=== PATIENT | female | born 1975 | race Caucasian/White ===

== ENCOUNTER 2016-02-21 21:14 | Emergency (ER) | payer BC ==
--- NOTE | 2016-02-22 01:21 | DIAGNOSTIC IMAGING REPORT ---
PROCEDURE: CT ABD/PELVIS WITH CONTRAST INDICATION: GI bleed. Nausea. Elevated white blood count (12,000). TECHNIQUE: 135 ml of Isovue 300 were injected intravenously and axial images were obtained of the entire abdomen and pelvis with sagittal and coronal reformations. COMPARISON: None. FINDINGS: ABDOMEN: There is moderate to marked mucosal thickening of the distal transverse colon, descending colon and proximal sigmoid colon. Bowel pattern is otherwise normal, including appendix. Gallbladder, liver, spleen, pancreas, kidneys, and aorta are normal. PELVIS: Status post hysterectomy. Adnexal structures are normal. No evidence of free fluid. IMPRESSION: 1. Moderate to marked mucosal thickening of the left colon. While infectious processes are most likely (e.g., Salmonella, Shigella, pseudomembranous), idiopathic causes (e.g., Crohn disease) should also be considered. Small vessel ischemic colitis could also have this distribution (e.g., vasculitis), as there is nothing to suggest large vessel disease (atherosclerosis, embolic). 2. Status post hysterectomy. 3. Findings discussed with Dr. Leon. All CT scans at this facility use dose modulation, iterative reconstruction, and/or weight-based dosing when appropriate to reduce radiation dose to as low as reasonably achievable.
--- NOTE | 2016-02-22 01:29 | ED NURSING NOTES ---
Clinical Report - Nurses [facility] [address] [place] [address] 02/21/2016 21:15 [id number] Triage time 22:05 Feb 21 2016. Acuity: LEVEL 3. Chief Complaint: (Bloody stool). SEPSIS SCREEN: Sepsis Screen: negative. Negative (no infection suspected/documented). CHINO COMA SCORE: [place] Coma Scale: 15- eyes open spontaneously (4); best verbal response- oriented x 4 (5); best motor response- obeys commands (6). --22:10 Kelli Ordoñez 22:05 02/21/16. BP: 145/99. HR: 99. RR: 20. O2 saturation: 97%. Temp: 98.2 F (oral). Pain level now: 08/28. --22:10 Kelli Ordoñez. Weight: 117.9 kg stated. Height/Length: 67 inches Per Patient. BMI: 40.7. --22:09 Kelli Ordoñez. Medications Gabapentin Oral 300 mg. Glimepiride Oral (Tablet 2 mg). Hydrocodone-Acetaminophen Oral. Ibuprofen Oral 800 mg. Lisinopril Oral 5 mg, daily. Metformin HCl Oral 850 mg, 2x a day. --22:08 Kelli Ordoñez Niacin ER Oral (Tablet Extended Release 500 mg). Simvastatin Oral 20 mg, daily. --22:08 Kelli Ordoñez. Medication/allergy information source: the patient. --22:10 Kelli Ordoñez. Allergies Morphine and Related. --22:09 Kelli Ordoñez. History Arrived by private vehicle. Historian: patient. Accompanied by family. Primary physician (belinda). This started yesterday. ( Patient states that she began having abdominal cramping and nausea yesterday. She states she then had diarrhea that then began to turn bloody. She states she has no pressure or pain in her rectum and does not believe it to be hemorrhoids. She feels lightheaded.). No fever. Treatment EXPERIMENTAL DISPLAY BUILDER: None. PAST MEDICAL HX: Immunizations: up-to-date. The patient has had a hysterectomy. SOCIAL HX: Never smoker. Occasional alcohol use. No drug use. No infectious disease exposure. ABUSE ASSESSMENT: No report of abuse. FALL RISK ASSESSMENT: Fall risk assessment completed. No fall risk identified. NUTRITIONAL RISK ASSESSMENT: The nutritional risk assessment revealed no deficiencies. FUNCTIONAL ASSESSMENT: Functional assessment: no impairments noted. LEARNING NEEDS ASSESSMENT: The learning needs assessment revealed no barriers. SKIN INTEGRITY ASSESSMENT: Skin integrity risk assessment completed. No skin integrity risk identified. --22:10 Kelli Ordoñez. PROBLEMS: UTI - Urinary Tract Infection. Ovarian Cyst. Endometriosis. Vaginal Bleeding. Hypertension. Diabetes Mellitus. --22: Kelli Ordoñez. ADDITIONAL SURGERIES: Carpal Tunnel Surgery. Foot surgery. Knee Surgery. --22: Kelli Ordoñez. Interventions ID band on patient. To treatment room. --22:10 Kelli Ordoñez. PHYSICAL ASSESSMENT Ambulatory to room. Patient gowned. GENERAL / NEURO / PSYCH: Alert. Oriented X 4. Appears in pain. HEENT: Mucous membranes are pink. RESPIRATORY: Respirations not labored. CVS: Cardiac rhythm: sinus tachycardia. GI / : Abdomen soft. Abdominal tenderness in the periumbilical area. SKIN: Skin is warm and dry. --22:11 Kelli Ordoñez. NURSING PROGRESS NOTES 22:02/21/16. Pulse oximeter and NIBP monitor placed on patient; monitor alarms on. Patient gowned. Head of bed elevated. Reassurance given to the patient. Two patient identifiers checked. Call light placed in reach. Side rails up x 1. Bed placed in lowest position. Brakes of bed on. Patient ready for evaluation- chart flagged. --22:11 Kelli Ordoñez Patient ready for evaluation- chart flagged and ED physician notified. --22:12 Kelli Ordoñez 22:39 02/21/2016 Site #1 started via IV in the right antecubital space with an 20g angiocath, with aseptic technique and good blood return; one attempt. Blood drawn: rainbow set. Labeled in the presence of the patient and sent to the lab. Saline lock flushed with 10 mL saline. --22:39 Kelli Ordoñez 22:40 02/21/2016 Started bag #1 1000 mL IV Fluids IV NS (Saline); at 1000 mL/hr over 30 minute(s) via site #1. Allergies verified and confirmed 5 rights. IV patency established. IV site checked: no pain, redness, or swelling. IV flushed thoroughly pre- and post-medication administration. --22:40 Kelli Ordoñez 22:40 02/21/2016 Zofran (Ondansetron HCl) IVP 4 mg given over 1 minute(s) via site #1. Allergies verified and confirmed 5 rights. IV patency established. IV site checked: no pain, redness, or swelling. IV flushed thoroughly pre- and post-medication administration. IVP given by RN. --22:40 Kelli Ordoñez 22:41 02/21/16. BP: 130/103. HR: 96. RR: 20. O2 saturation: 99% on room air. --22:42 Kelli Ordoñez Patient ID band checked for patient name and birthdate: patient confirmed. Blood samples drawn from the right antecubital space peripheral IV site by nurse ; labeled in presence of the patient and sent to lab: rainbow set. Additional blood sent to lab. Line flushed with 10 mL normal saline post blood draw. --22:42 Kelli Ordoñez 22:42 02/21/16. BP: 141/89. --22:42 Kelli Ordoñez 23:31 02/21/16. BP: 123/87. --23:32 Leela Ochoa R.N. 23:32 02/21/2016 IV Fluids IV NS Discontinued: bag #1 infused. Total amount infused: 1000 mL. --23:33 Leela Ochoa R.N. Patient transported to [place] by stretcher with tech. (23:45 Feb 21 2016). --23:45 Kelli Ordoñez 23:56 02/21/2016 Fentanyl IVP 100 mcg given over 2 minute(s) via site #1. Allergies verified, confirmed 5 rights and sedative warning given to the patient. IV patency established. IV site checked: no pain, redness, or swelling. IV flushed thoroughly pre- and post-medication administration. IVP given by RN. --23:56 Kelli Ordoñez 23:56 02/21/16. BP: 135/95. HR: 94. RR: 20. O2 saturation: 100% on room air. Pain level now: 0/10. --23:57 Kelli Ordoñez Reassessment after medication administered. Overall patient status- she states feels better. ( Patient states she felt immediately better after receiving pain medication). --23:57 Kelli Ordoñez 00:15 02/22/2016 Bactrim DS (Sulfamethoxazole-TMP DS) PO Tablets 1 tab given. Allergies verified and confirmed 5 rights. --00:15 Kelli Ordoñez 00:31 02/22/2016 Zofran (Ondansetron HCl) IVP 4 mg given over 2 minute(s) via site #1. Allergies verified and confirmed 5 rights. IV patency established. IV site checked: no pain, redness, or swelling. IV flushed thoroughly pre- and post-medication administration. IVP given by RN. --00:31 eKlli Ordoñez 01:18 02/22/16. BP: 100/74. HR: 90. O2 saturation: 97% on room air. --01:18 Kelli Ordoñez EKG time: (0125). EKG was performed by a tech and shown to the ED physician. --01:26 Rosanna Macario 01:02/22/2016 Site #1 removed upon discharge. Catheter intact. Bandaid applied. --01: Kelli Ordoñez. DISPOSITION / DISCHARGE ( 01:18 02/22/16. BP: 100/74. HR: 90. O2 saturation: 97% on room air. 1:18 Kelli Ordoñez). --01:31 Kelli Ordoñez 01:31 02/22/16. Temp: 98.9 F. Pain level now 0/10. --01:31 Kelli Ordoñez 01:32 02/22/16. Condition at departure: stable. No learning barriers present. Discharge instructions provided and reviewed with the patient and spouse. Reviewed medication(s) side effects, precautions, dosing and course information. Prescription(s) given to the patient. Reviewed need for increased fluid intake. Work note given (No work for three days). Patient verbalized understanding. Written instructions provided in Serbian. ( Follow up with PCP in 24 hours.). The patient was discharged by the physician. She was discharged home and accompanied by spouse. She left the Emergency Department ambulatory and via private vehicle. Spouse driving. --01:33 Kelli Ordoñez. Locked/Released at 02/22/2016 1:43 by Kelli Ordoñez,
--- NOTE | 2016-02-22 01:29 | ED ORDER SUMMARY ---
..... Patient: KENNEDY GILLETTE OrderSheet [facility] VisitID: [id number] [place] [address] 40y, F Registration Date/Time: 02/21/2016 ORDER SHEET Weight: 117.9 kg (stated) Allergies: Morphine and Related GENERAL ORDERS: UA-Culture if indicated Urgent (22:02/21/2016 PHutchinson DO) (Ack 22:28 LMuller) (23:39 CHategekimana) Amylase Urgent (:02/21/2016 PHutchinson DO) (Ack 22:28 LMuller) (23:28 SBalde R.N.) Lipase Urgent (:02/21/2016 PHutchinson DO) (Ack 22:28 LMuller) (23:28 SBalde R.N.) PT with INR Urgent (22:02/21/2016 PHutchinson DO) (Ack 22:28 LMuller) (23:28 SBalde R.N.) Cardiac Panel Stat (22:02/21/2016 PHutchinson DO) (Ack 22:28 LMuller) (23:28 SBalde R.N.) Culture, Stool Urgent (22:02/21/2016 PHutchinson DO) (Ack 22:28 LMuller) NPO (22:02/21/2016 PHutchinson DO) (22:43 HSoule) CT Abd/Pel w Cont (Yes) (N/A) Urgent (22:30 02/21/2016 PHutchinson DO) (Ack 22:30 LMuller) (23:54 MCampbell) EKG - ER Stat (01:10 02/22/2016 PHutchinson DO) (Ack 1:14 Jensegekimana) (1:26 LMuller) MEDICATION ORDERS: Bactrim DS PO (Tablet 800-160 mg) 1 tab (NOW) (00:06 02/22/2016 PHutchinson DO) (Ack 0:10 HSoule) (0:15 HSoule) IV FLUIDS: IV NS : initial bolus 500 mL (1000 mL/hr), then 250 mL/hr for X2 (NOW) (22:25 02/21/2016 [facility]) (Ack 22:27 HSoule) (22:40 HSoule) Zofran IV 4 mg (NOW) (22:26 02/21/2016 [facility]) (Ack 22:27 HSoule) (22:40 HSoule) Fentanyl IV 100 mcg (HIGH ALERT MEDICATION, NOW) (23:49 02/21/2016 [facility]) (Ack 23:49 HSoule) (23:56 HSoule) Zofran IV 4 mg (NOW) (00:27 02/22/2016 [facility]) (Ack 0:28 HSoule) (0:31 HSoule) ORDER SHEET NOTES: [Electronically signed by Kelli Ordoñez (01:43 02/22/2016)] [Electronically signed by Arnie Leon DO (07:18 02/22/2016)] [Electronically locked/signed by Kelli Ordoñez (:43 02/22/2016)]
--- NOTE | 2016-02-22 01:29 | ED ORDER SUMMARY ---
..... Patient: KENNEDY GILLETTE OrderSheet [facility] VisitID: [id number] [place] [address] 40y, F Registration Date/Time: 02/21/2016 ORDER SHEET Weight: 117.9 kg (stated) Allergies: Morphine and Related GENERAL ORDERS: UA-Culture if indicated Urgent (22:02/21/2016 PHutchinson DO) (Ack 22:28 LMuller) (23:39 CHategekimana) Amylase Urgent (:02/21/2016 PHutchinson DO) (Ack 22:28 LMuller) (23:28 SBalde R.N.) Lipase Urgent (:02/21/2016 PHutchinson DO) (Ack 22:28 LMuller) (23:28 SBalde R.N.) PT with INR Urgent (22:02/21/2016 PHutchinson DO) (Ack 22:28 LMuller) (23:28 SBalde R.N.) Cardiac Panel Stat (22:02/21/2016 PHutchinson DO) (Ack 22:28 LMuller) (23:28 SBalde R.N.) Culture, Stool Urgent (22:02/21/2016 PHutchinson DO) (Ack 22:28 LMuller) NPO (22:02/21/2016 PHutchinson DO) (22:43 HSoule) CT Abd/Pel w Cont (Yes) (N/A) Urgent (22:30 02/21/2016 PHutchinson DO) (Ack 22:30 LMuller) (23:54 MCampbell) EKG - ER Stat (01:10 02/22/2016 PHutchinson DO) (Ack 1:14 Jensegekimana) (1:26 LMuller) MEDICATION ORDERS: Bactrim DS PO (Tablet 800-160 mg) 1 tab (NOW) (00:06 02/22/2016 PHutchinson DO) (Ack 0:10 HSoule) (0:15 HSoule) IV FLUIDS: IV NS : initial bolus 500 mL (1000 mL/hr), then 250 mL/hr for X2 (NOW) (22:25 02/21/2016 [facility]) (Ack 22:27 HSoule) (22:40 HSoule) Zofran IV 4 mg (NOW) (22:26 02/21/2016 [facility]) (Ack 22:27 HSoule) (22:40 HSoule) Fentanyl IV 100 mcg (HIGH ALERT MEDICATION, NOW) (23:49 02/21/2016 [facility]) (Ack 23:49 HSoule) (23:56 HSoule) Zofran IV 4 mg (NOW) (00:27 02/22/2016 [facility]) (Ack 0:28 HSoule) (0:31 HSoule) ORDER SHEET NOTES: [Electronically signed by Kelli Ordoñez (01:43 02/22/2016)] [Electronically signed by Arnie Leon DO (07:18 02/22/2016)] [Electronically locked/signed by Kelli Ordoñez (:43 02/22/2016)]
--- NOTE | 2016-02-22 01:29 | ED CLINICAL REPORT ---
Clinical Report - Physicians/Mid Levels [facility] [address] [place] [address] 02/21/2016 21:15 Patient: KENNEDY GILLETTE Time Seen: 22:22. Arrived- By private vehicle. Historian- patient. HISTORY OF PRESENT ILLNESS Chief Complaint: RECTAL BLEEDING. This started last night about 22 hours ago, has been moderate and is still present. It was gradual in onset and has been waxing/waning. The patient has had rectal bleeding, nausea and moderate, crampy, intermittent abdominal pain. The pain is described as generalized. but not had rectal pain. No constipation or vomiting. The patient has had moderate diarrhea. This has occurred several times. It has been bloody and watery and has been associated with cramps. (Patient states that she began having abdominal cramping and nausea yesterday. She states she then had diarrhea that then began to turn bloody. She states she has no pressure or pain in her rectum and does not believe it to be hemorrhoids. She feels lightheaded. No fever.). She has had contact with a sick spouse. (with viral sounding URI symptoms). Similar symptoms previously: Recent medical care: Not recently seen/assessed. REVIEW OF SYSTEMS The patient has had generalized weakness. The patient has had a hysterectomy. She has had dizziness. No fainting episodes, fever, sore throat, epistaxis or cough. No difficulty breathing, chest pain, hematuria or skin rash. Denies current . She has had mild nasal congestion and a mild cough. All systems otherwise negative, except as recorded above. PAST HISTORY See nurses notes. PCP: Dr Mccormick. Hypertension. Type II diabetes mellitus treated with oral med. Hyperlipidemia. Endometriosis. Ovarian cyst. Urinary tract infection. Chronic back pain. Surgeries: Carpal tunnel surgery. Colonoscopy. Had hysterectomy. Knee surgery. Medications: Niacin ER Oral (Tablet Extended Release 500 mg). Simvastatin Oral 20 mg, daily. Gabapentin Oral 300 mg. Glimepiride Oral (Tablet 2 mg). Hydrocodone-Acetaminophen Oral. Ibuprofen Oral 800 mg. Lisinopril Oral 5 mg, daily. Metformin HCl Oral 850 mg, 2x a day. Allergies: Morphine and Related. SOCIAL HISTORY Never smoker. Occasional alcohol use. FAMILY HISTORY Son diagnosed with Crohn's disease about 2 years ago. ADDITIONAL NOTES The nursing notes have been reviewed. PHYSICAL EXAM Vital Signs: 02/21/2016 22:05 BP: 145/99. HR: 99. RR: 20. O2 saturation: 97%. Temp: 98.2 F. Pain level now: 7/10. Appearance: Alert. Oriented X3. No acute distress. Eyes: Pupils equal, round and reactive to light. Eyes normal inspection. No pale conjunctivae or scleral icterus. ENT: Pharynx normal. No pharyngeal erythema or tonsillar exudate. The mucous membranes are not dry. Neck: Normal inspection. Neck supple. CVS: Normal heart rate and rhythm. Heart sounds normal. Pulses normal. Respiratory: No respiratory distress. Breath sounds normal. Abdomen: Soft. Mild tenderness in the lower abdomen. No mass. No rebound tenderness or guarding. Back: Normal inspection. Skin: Skin warm and dry. Normal skin color. No rash. Normal skin turgor. Extremities: Extremities exhibit normal ROM. No lower extremity edema. No calf tenderness. Neuro: Oriented X 3. No motor deficit. LABS, X-RAYS, AND EKG EKG: EKG time: (01:25). Normal sinus rhythm. Rate: 90. Normal P waves. Normal SO. Normal QRS complex. Normal axis. Normal ST and T waves. The study has been interpreted contemporaneously by me. The EKG appears to be a good tracing. Abdominal CT: Normal aorta. Normal liver, spleen and pancreas. Uterus abnormal. Adnexa normal. Appendix normal. No free fluid. IMPRESSION: 1. Moderate to marked mucosal thickening of the left colon. While infectious processes are most likely (e.g., Salmonella, Shigella, pseudomembranous), idiopathic causes (e.g., Crohn disease) should also be considered. Small vessel ischemic colitis could also have this distribution (e.g., vasculitis), as there is nothing to suggest large vessel disease (atherosclerosis, embolic). 2. Status post hysterectomy. Study type: abdomen and pelvis. Abdominal CT performed with IV contrast. The study was independently viewed by me, interpreted by the radiologist and discussed with the radiologist. Laboratory Tests: UA-Culture if indicated: (SHREYAS: 02/21/2016 23:35) ( MsgRcvd 02/21/2016 23:56) Final results Test Result Flag Units (Reference) URINE COLOR YELLOW URINE APPEARANCE SLIGHTLY HAZY URINE GLUCOSE NEGATIVE (NEGATIVE) URINE BILIRUBIN NEGATIVE (NEGATIVE) URINE KETONE NEGATIVE (NEGATIVE) URINE SPECIFIC GRAVITY <= 1.005 L (1.010-1.030) URINE PH 6.0 (5.0-8.0) URINE PROTEIN NEGATIVE (NEGATIVE) URINE UROBILINOGEN 0.2 EU/dL (0.2-1.0) URINE NITRITE NEGATIVE (NEGATIVE) URINE BLOOD 1+ (NEGATIVE) URINE LEUK ESTERASE POSITIVE (NEGATIVE) URINE RBC 1-3 rbc/hpf (0-1) URINE WBC 5-10 wbc/hpf (0-1) URINE EPITHELIAL CELLS 5-10 EPI/hpf (0-5) URINE BACTERIA TRACE (<1+) (NONE SEEN) URINE COMMENT CULTURE INDICATED URINE CULTURES ARE SET-UP BASED ON THE FOLLOWING CRITERIA:POSITIVE NITRITEPOSITIVE LEUKOCYTE ESTERASEGREATER THAN 10 WHITE BLOOD CELLSMODERATE (2+) OR GREATER BACTERIA CBC w Diff: (SHREYAS: 02/21/2016 23:00) ( MsgRcvd 02/21/2016 23:08) Final results Test Result Flag Units (Reference) WHITE BLOOD COUNT 12.0 H K/uL (4.5-11.5) RED BLOOD COUNT 4.48 M/uL (4.00-5.20) HEMOGLOBIN 12.4 gm/dL (12.0-16.0) HEMATOCRIT 38.6 % (36.0-46.0) MEAN CELL VOLUME 86 fL (80-100) MEAN CORPUSCULAR HGB 28 pg (26-34) MEAN CORPUSCULAR HGB CONC 32 g/dL (31-37) RED CELL DISTRIBUTION WIDTH 15.3 H % (11.6-14.8) PLATELET COUNT 350 K/uL (150-400) NEUTROPHIL % 75.2 H % (50-75) LYMPH % 17.1 L % (25-40) MONO % 6.4 % (3-14) EOSINOPHIL % 1.0 % (0-4) BASOPHIL % 0.3 % (0-2) PT with INR: (SHREYAS: 02/21/2016 23:00) ( [facility] 02/21/2016 23:15) Final results Test Result Flag Units (Reference) INR 0.9 (0.8-1.2) Low Intensity Therapy: INR 1.5-2.0 PT range 18.5-23.1Mod.Intensity Therapy: INR 2.0-3.0 PT range 23.1-31.5High Intensity Therapy: INR 2.5-3.5 PT range 27.4-35.5High Intensity Therapy 2: INR 3.0-4.0 PT range 31.5-39.3 Lipase: (SHREYAS: 02/21/2016 23:00) ( [facility] 02/21/2016 23:19) Final results Test Result Flag Units (Reference) LIPASE 114 U/L (73-393) AMYLASE 24 L U/L (25-115) CHEM 13 PANEL: (SHREYAS: 02/21/2016 23:00) ( [facility] [place] [place] 02/21/2016 23:24) Final results Test Result Flag Units (Reference) GLUCOSE 140 H mg/dL (70-110) BUN 7 mg/dL (7-18) CREATININE 0.7 mg/dL (0.6-1.3) Estimated GFR >60 mL/min Estimated GFR- >60 mL/min Note: Persistent reduction over 3 months in eGFR<60 mL/min/1.73 m2 defines CKD. Patients with eGFR values>=60 mL/min/1.73 m2 may also have CKD if evidence ofpersistent proteinuria. Additional information may be foundat www.kidney.org. SODIUM 139 mmol/L (136-145) POTASSIUM 3.5 mmol/L (3.5-5.1) CHLORIDE 103 mmol/L (98-107) CARBON DIOXIDE 26 mmol/L (21-32) CALCIUM 9.0 mg/dL (8.5-10.1) TOTAL PROTEIN 7.4 g/dL (6.4-8.2) ALBUMIN 3.5 g/dL (3.3-5.0) BILIRUBIN, TOTAL 0.4 mg/dL (0.0-1.0) ALKALINE PHOSPHATASE 83 U/L (46-116) AST (SGOT) 11 L U/L (15-37) ALT (SGPT) 28 U/L (12-78) CPK 51 U/L (24-260) MAGNESIUM 1.8 mg/dL (1.8-2.4) TROPONIN I <0.05 L ng/mL (0.00-1.5) TROPONIN REFERENCE RANGE:<0.1 NEGATIVE0.1-1.5 INDETERMINANT>1.5 POSITIVE . Microbiology: Urine culture ordered. Pulse Oximetry: 02/21/2016 22:05 O2 saturation: 97%. (FIO2 - room air). Interpretation: normal. PROGRESS AND PROCEDURES Course of Care: Normal Saline 1 liter IVPB given. Bactrim DS 1 tab PO. Zofran 4 mg + 4 mg IVP given. Fentanyl 100 mcg IVP given. 01:12 02/22/16. CT report just obtained from radiologist (Dr Shepherd). Transverse and descending colon with moderate mucosal thickening - etiology is not clear 01:20 02/22/16. Pain has resolved. Currently nontender abdominal exam. Discussed admission vs home treatment with close out pt follow up and / or return to the ED - pt has good follow up mechanisms with pcp and has had colonoscopy in the past by [facility]. I will give trial at home with immediate return for new / worse symptoms or any concerns. Patient/family counseled. Old ED records reviewed. Disposition: Discharged. Condition: stable and improved. CLINICAL IMPRESSION Acute periumbilical, right lower quadrant, suprapubic and left lower quadrant abdominal pain of undetermined cause. Acute inflammatory colitis; infectious colitis (Consider inflammatory bowel disease / Crohn's disease). No pseudomembranous colitis. Rectal bleed consisting of bright red blood. Acute urinary tract infection with cystitis. INSTRUCTIONS Do not work for three days. Drink plenty of fluids. No alcohol until released. (MANDATORY FOLLOW UP IN 12 - 24 HOURS. Immediate return for new / worse symptoms or any concerns.). Warnings: Further evaluation is necessary in order to recheck abnormal lab, obtain test results, conduct further tests and assess the possibility of serious illness (You will likely require a repeat colonoscopy). It is very important to follow up with a physician. SEDATIVE MEDICATION: You were given sedative medication during your visit. Do not drive or operate dangerous machinery. CONTROLLED SUBSTANCE WARNINGS. GENERAL WARNINGS: Return or contact your physician immediately if your condition worsens or changes unexpectedly, if not improving as expected, or if other problems arise. Prescription Medications: Zofran (orally disintegrating tablets) 4 mg: take 1-2 orally every 8 hours as needed for vomiting. Dispense ten (10). No refill. Substitution is permissible. Trimethoprim-Sulfamethoxazole DS: take 1 tablet orally every 12 hours for 7 days. Dispense fourteen (14). No refills. Percocet 5 mg/325 mg: take 1-2 tablets orally every 6 hours as needed for pain. Dispense ten (10). No refill. Substitution is permissible. Follow-up with: Dariusz Mccormick MD, [facility], , [address] [place] [address] Follow up tomorrow. Follow-up with: Nelson Freeman MD, General Surgeon, , [facility], [address] [place] [address] Follow up tomorrow. Call for the next available appointment. (Electronically signed by Arnie Leon DO 02/22/2016 7:18)
--- NOTE | 2016-02-22 01:29 | ED NURSING NOTES ---
Clinical Report - Nurses [facility] [address] [place] [address] 02/21/2016 21:15 [id number] TRI[facility] Triage time 22:05 Feb 21 2016. Acuity: LEVEL 3. Chief Complaint: (Bloody stool). SEPSIS SCREEN: Sepsis Screen: negative. Negative (no infection suspected/documented). [place] COMA SCORE: [place] Coma Scale: 15- eyes open spontaneously (4); best verbal response- oriented x 4 (5); best motor response- obeys commands (6). --22:10 Kelli Ordoñez 22:05 02/21/16. BP: 145/99. HR: 99. RR: 20. O2 saturation: 97%. Temp: 98.2 F (oral). Pain level now: 08/28. --22:10 Kelli Ordoñez. Weight: 117.9 kg stated. Height/Length: 67 inches Per Patient. BMI: 40.7. --22:09 Kelli Ordoñez. Medications Gabapentin Oral 300 mg. Glimepiride Oral (Tablet 2 mg). Hydrocodone-Acetaminophen Oral. Ibuprofen Oral 800 mg. Lisinopril Oral 5 mg, daily. Metformin HCl Oral 850 mg, 2x a day. --22:08 Kelli Ordoñez Niacin ER Oral (Tablet Extended Release 500 mg). Simvastatin Oral 20 mg, daily. --22:08 Kelli Ordoñez. Medication/allergy information source: the patient. --22:10 Kelli Ordoñez. Allergies Morphine and Related. --22:09 Kelli Ordoñez. History Arrived by private vehicle. Historian: patient. Accompanied by family. Primary physician (belinda). This started yesterday. ( Patient states that she began having abdominal cramping and nausea yesterday. She states she then had diarrhea that then began to turn bloody. She states she has no pressure or pain in her rectum and does not believe it to be hemorrhoids. She feels lightheaded.). No fever. Treatment FINISH INSPECTOR: None. PAST MEDICAL HX: Immunizations: up-to-date. The patient has had a hysterectomy. SOCIAL HX: Never smoker. Occasional alcohol use. No drug use. No infectious disease exposure. ABUSE ASSESSMENT: No report of abuse. FALL RISK ASSESSMENT: Fall risk assessment completed. No fall risk identified. NUTRITIONAL RISK ASSESSMENT: The nutritional risk assessment revealed no deficiencies. FUNCTIONAL ASSESSMENT: Functional assessment: no impairments noted. LEARNING NEEDS ASSESSMENT: The learning needs assessment revealed no barriers. SKIN INTEGRITY ASSESSMENT: Skin integrity risk assessment completed. No skin integrity risk identified. --22:10 Kelli Ordoñez. PROBLEMS: UTI - Urinary Tract Infection. Ovarian Cyst. Endometriosis. Vaginal Bleeding. Hypertension. Diabetes Mellitus. --22: Kelli Ordoñez. ADDITIONAL SURGERIES: Carpal Tunnel Surgery. Foot surgery. Knee Surgery. --22: Kelli Ordoñez. Interventions ID band on patient. To treatment room. --22:10 Kelli Ordoñez. PHYSICAL ASSESSMENT Ambulatory to room. Patient gowned. GENERAL / NEURO / PSYCH: Alert. Oriented X 4. Appears in pain. HEENT: Mucous membranes are pink. RESPIRATORY: Respirations not labored. CVS: Cardiac rhythm: sinus tachycardia. GI / : Abdomen soft. Abdominal tenderness in the periumbilical area. SKIN: Skin is warm and dry. --22:11 Kelli Ordoñez. NURSING PROGRESS NOTES 22:02/21/16. Pulse oximeter and NIBP monitor placed on patient; monitor alarms on. Patient gowned. Head of bed elevated. Reassurance given to the patient. Two patient identifiers checked. Call light placed in reach. Side rails up x 1. Bed placed in lowest position. Brakes of bed on. Patient ready for evaluation- chart flagged. --22:11 Kelli Ordoñez Patient ready for evaluation- chart flagged and ED physician notified. --22:12 Kelli Ordoñez 22:39 02/21/2016 Site #1 started via IV in the right antecubital space with an 20g angiocath, with aseptic technique and good blood return; one attempt. Blood drawn: rainbow set. Labeled in the presence of the patient and sent to the lab. Saline lock flushed with 10 mL saline. --22:39 Kelli Ordoñez 22:40 02/21/2016 Started bag #1 1000 mL IV Fluids IV NS (Saline); at 1000 mL/hr over 30 minute(s) via site #1. Allergies verified and confirmed 5 rights. IV patency established. IV site checked: no pain, redness, or swelling. IV flushed thoroughly pre- and post-medication administration. --22:40 Kleli Ordoñez 22:40 02/21/2016 Zofran (Ondansetron HCl) IVP 4 mg given over 1 minute(s) via site #1. Allergies verified and confirmed 5 rights. IV patency established. IV site checked: no pain, redness, or swelling. IV flushed thoroughly pre- and post-medication administration. IVP given by RN. --22:40 Kelli Ordoñez 22:41 02/21/16. BP: 130/103. HR: 96. RR: 20. O2 saturation: 99% on room air. --22:42 Kelli Ordoñez Patient ID band checked for patient name and birthdate: patient confirmed. Blood samples drawn from the right antecubital space peripheral IV site by nurse ; labeled in presence of the patient and sent to lab: rainbow set. Additional blood sent to lab. Line flushed with 10 mL normal saline post blood draw. --22:42 Kelli Ordoñez 22:42 02/21/16. BP: 141/89. --22:42 Kelli Ordoñez 23:31 02/21/16. BP: 123/87. --23:32 Leela Ochoa R.N. 23:32 02/21/2016 IV Fluids IV NS Discontinued: bag #1 infused. Total amount infused: 1000 mL. --23:33 Leela Ochoa R.N. Patient transported to [facility] by stretcher with tech. (23:45 Feb 21 2016). --23:45 Kelli Ordoñez 23:56 02/21/2016 Fentanyl IVP 100 mcg given over 2 minute(s) via site #1. Allergies verified, confirmed 5 rights and sedative warning given to the patient. IV patency established. IV site checked: no pain, redness, or swelling. IV flushed thoroughly pre- and post-medication administration. IVP given by RN. --23:56 Kelli Ordoñez 23:56 02/21/16. BP: 135/95. HR: 94. RR: 20. O2 saturation: 100% on room air. Pain level now: 0/10. --23:57 Kelli Ordoñez Reassessment after medication administered. Overall patient status- she states feels better. ( Patient states she felt immediately better after receiving pain medication). --23:57 Kelli Ordoñez 00:15 02/22/2016 Bactrim DS (Sulfamethoxazole-TMP DS) PO Tablets 1 tab given. Allergies verified and confirmed 5 rights. --00:15 Kelli Ordoñez 00:31 02/22/2016 Zofran (Ondansetron HCl) IVP 4 mg given over 2 minute(s) via site #1. Allergies verified and confirmed 5 rights. IV patency established. IV site checked: no pain, redness, or swelling. IV flushed thoroughly pre- and post-medication administration. IVP given by RN. --00:31 Kelli Ordoñez 01:18 02/22/16. BP: 100/74. HR: 90. O2 saturation: 97% on room air. --01:18 Kelli Ordoñez EKG time: (0125). EKG was performed by a tech and shown to the ED physician. --01:26 Rosanna Macario 01:02/22/2016 Site #1 removed upon discharge. Catheter intact. Bandaid applied. --01: Kelli Ordoñez. DISPOSITION / DISCHARGE ( 01:18 02/22/16. BP: 100/74. HR: 90. O2 saturation: 97% on room air. 1:18 Kelli Ordoñez). --01:31 Kelli Ordoñez 01:31 02/22/16. Temp: 98.9 F. Pain level now 0/10. --01:31 Kelli Ordoñez 01:32 02/22/16. Condition at departure: stable. No learning barriers present. Discharge instructions provided and reviewed with the patient and spouse. Reviewed medication(s) side effects, precautions, dosing and course information. Prescription(s) given to the patient. Reviewed need for increased fluid intake. Work note given (No work for three days). Patient verbalized understanding. Written instructions provided in Greek. ( Follow up with PCP in 24 hours.). The patient was discharged by the physician. She was discharged home and accompanied by spouse. She left the Emergency Department ambulatory and via private vehicle. Spouse driving. --01:33 Kelli Ordoñez. Locked/Released at 02/22/2016 1:43 by Kelli Ordoñez,
--- NOTE | 2016-02-22 07:19 | ED DISCHARGE INSTRUCTIONS ---
Patient: KENNEDY GILLETTE General Instructions [facility] VisitID: [id number] [place], [place] [id number] 40y, F Registration Date/Time: 02/21/2016 Acute periumbilical, right lower quadrant, suprapubic and left lower quadrant abdominal pain of undetermined cause. Acute inflammatory colitis; infectious colitis (Consider inflammatory bowel disease / Crohn's disease). No pseudomembranous colitis. Rectal bleed consisting of bright red blood. Acute urinary tract infection with cystitis. INSTRUCTIONS Do not work for three days. Drink plenty of fluids. No alcohol until released. (MANDATORY FOLLOW UP IN 12 - 24 HOURS. Immediate return for new / worse symptoms or any concerns.). Warnings: Further evaluation is necessary in order to recheck abnormal lab, obtain test results, conduct further tests and assess the possibility of serious illness (You will likely require a repeat colonoscopy). It is very important to follow up with a physician. SEDATIVE MEDICATION: You were given sedative medication during your visit. Do not drive or operate dangerous machinery. CONTROLLED SUBSTANCE WARNINGS. GENERAL WARNINGS: Return or contact your physician immediately if your condition worsens or changes unexpectedly, if not improving as expected, or if other problems arise. Prescription Medications: Zofran (orally disintegrating tablets) 4 mg: take 1-2 orally every 8 hours as needed for vomiting. Dispense ten (10). No refill. Substitution is permissible. Trimethoprim-Sulfamethoxazole DS: take 1 tablet orally every 12 hours for 7 days. Dispense fourteen (14). No refills. Percocet 5 mg/325 mg: take 1-2 tablets orally every 6 hours as needed for pain. Dispense ten (10). No refill. Substitution is permissible. Follow-up with: Dariusz Mccormick MD, Family Practice, , [address] [place] [address] Follow up tomorrow. Follow-up with: Nelson Freeman MD, General Surgeon, , [facility], [address] [place] [address] Follow up tomorrow. Call for the next available appointment. ADDITIONAL INFORMATION Rectal Bleeding (Stable) Your exam today shows signs of blood in the stool. This is called rectal bleeding, because the blood passes through the rectum. However, the blood may not be coming from the rectum. Blood in the stool may be red or black in color. Red blood in the stool usually comes from the lower gastro-intestinal (GI) tract. This may be due to diverticulosis, polyps, colon inflammation or infection, anal fissure or hemorrhoids. In persons over 50 tumors and cancer of the intestinal tract may first show up as red blood in the stool. Upper GI bleeding causes the stool to turn black. This may occur with bleeding from the esophagus, stomach, duodenum or small intestine. Very small amounts of GI bleeding may not be visible and can only be discovered on a chemical test of the stool. You have not lost a large amount of blood and your condition appears stable at this time. It is very important to have a follow-up exam to determine the exact cause of your bleeding. Home Care: 1) You may resume normal activity as long as you feel well. 2) Avoid aspirin and anti-inflammatory drugs such as ibuprofen (Advil, Motrin) and naproxen (Aleve and Naprosyn). You may use acetaminophen (Tylenol) for pain. [ NOTE : If you have chronic liver disease, talk with your doctor before using acetaminophen.] 3) Avoid alcohol. Follow Up with your doctor or as advised by our medical staff. It is very important that you have further tests done to find the cause of your bleeding. Get Prompt Medical Attention if any of the following occur: -- Large amount of rectal bleeding (more than 1 cup of blood in 24 hours) -- Increasing abdominal pain -- Weakness, dizziness or fainting -- Vomiting blood (red or black color) Abdominal Pain, Unknown Cause (Female) The exact cause of your abdominal (stomach) pain is not certain. This does not mean that this is something to worry about, or the right tests were not done. Everyone likes to know the exact cause of the problem, but sometimes with abdominal pain, there is no clear-cut cause, and this could be a good thing. The good news is that your symptoms can be treated, and you will feel better. Your condition does not seem serious now; however, sometimes the signs of a serious problem may take more time to appear. For this reason,it is important for you to watch for any new symptoms, problems,or worsening of your condition. Over the next few days, the abdominal pain may come and go, or be continuous. Other common symptoms can include nausea and vomiting. Sometimes it can be difficult to tell if you feel nauseous, you may just feel bad and not associate that feeling with nausea. Constipation, diarrhea, and a fever may go along with the pain. The pain may continue even if treated correctly over the following days. Depending on how things go, sometimes the cause can become clear and may require further or different treatment. Additional evaluations, medications, or tests may be needed. Home care Your health care provider may prescribe medications for pain, symptoms, or an infection. Follow the health care provider's instructions for taking these medications. General care Rest until your next exam. No strenuous activities. Try to find positions that ease discomfort. A small pillow placed on the abdomen may help relieve pain. Something warm on your abdomen (such as a heating pad) may help, but be careful not to burn yourself. Diet Do not force yourself to eat, especially if having cramps, vomiting, or diarrhea. Water is important so you do not get dehydrated. Soup may also be good. Sports drinks may also help, especially if they are not too acidic. Make sure you don't drink sugary drinks as this can make things worse. Take liquids in small amounts. Do not guzzle them. Caffeine sometimes makes the pain and cramping worse. Avoid dairy products if you have vomiting or diarrhea. Don't eat large amounts at a time. Wait a few minutes between bites. Eat a diet low in fiber (called a low-residue diet). Foods allowed include refined breads, white rice, fruit and vegetable juices without pulp, tender meats. These foods will pass more easily through the intestine. Avoid whole-grain foods, whole fruits and vegetables, meats, seeds and nuts, fried or fatty foods, dairy, alcohol and spicy foods until your symptoms go away. Follow-up care Follow up with your health care provider as instructed, or if your pain does not begin to improve in the next 24 hours. When to seek medical care Seek prompt medical care if any of the following occur: Pain gets worse or moves to the right lower abdomen New or worsening vomiting or diarrhea Swelling of the abdomen Unable to pass stool for more than three days Fever of 100.4F (38C) or higher, or as directed by your healthcare provider. Blood in vomit or bowel movements (dark red or black color) Jaundice (yellow color of eyes and skin) Weakness, dizziness Chest, arm, back, neck or jaw pain Unexpected vaginal bleeding or missed period Call 911 Call emergency services if any of the following occur: Trouble breathing Confusion Fainting or loss of consciousness Rapid heart rate Seizure Bladder Infection,Female (Adult) A bladder infection ("cystitis" or "UTI") usually causes a constant urge to urinate and a burning when passing urine. Urine may be cloudy, smelly or dark. There may be pain in the lower abdomen. A bladder infection occurs when bacteria from the vaginal area enter the bladder opening (urethra). This can occur from sexual intercourse, wearing tight clothing, dehydration and other factors. Home Care: Drink lots of fluids (at least 6-8 glasses a day, unless you must restrict fluids for other medical reasons). This will force the medicine into your urinary system and flush the bacteria out of your body. Avoid sexual intercourse until your symptoms are gone. Avoid caffeine, alcohol and spicy foods. These can irritate the bladder. A bladder infection is treated with antibiotics. You may also be given Pyridium (generic = phenazopyridine) to reduce the burning sensation. This medicine will cause your urine to become a bright orange color. The orange urine may stain clothing. You may wear a pad or panty-liner to protect clothing. Preventing Future Infections: Always wipe from front to back after a bowel movement. Keep the genital area clean and dry. Drink plenty of fluids each day to avoid dehydration. Both sexual partners should wash before intercourse. Urinate right after intercourse to flush out the bladder. Wear cotton underwear and cotton-lined panty hose; avoid tight-fitting pants. If you are on control pills and are having frequent bladder infections, discuss with your doctor. Follow Up: Return to this facility or see your doctor if ALL symptoms are not gone after three days of treatment. Get Prompt Medical Attention if any of the following occur: Fever of 100.4F (38C) or higher, or as directed by your healthcare provider No improvement by the third day of treatment Increasing back or abdominal pain Repeated vomiting; unable to keep medicine down Weakness, dizziness or fainting Vaginal discharge Pain, redness or swelling in the labia (outer vaginal area) Ondansetron Oral disintegrating tablet What is this medicine? ONDANSETRON (on ANDREI se julia) is used to treat nausea and vomiting caused by chemotherapy. It is also used to prevent or treat nausea and vomiting after surgery. How should I use this medicine? These tablets are made to dissolve in the mouth. Do not try to push the tablet through the foil backing. With dry hands, peel away the foil backing and gently remove the tablet. Place the tablet in the mouth and allow it to dissolve, then swallow. While you may take these tablets with water, it is not necessary to do so. Talk to your oncology transplant network manager regarding the use of this medicine in children. Special care may be needed. What side effects may I notice from receiving this medicine? Side effects that you should report to your doctor or health residential child care counselor as soon as possible: allergic reactions like skin rash, itching or hives, swelling of the face, lips, or tongue breathing problems dizziness fast or irregular heartbeat feeling faint or lightheaded, falls fever and chills swelling of the hands and feet tightness in the chest Side effects that usually do not require medical attention (report to your doctor or health residential child care counselor if they continue or are bothersome): constipation or diarrhea headache What may interact with this medicine? Do not take this medicine with any of the following medications: -apomorphine -cisapride -dofetilide -dronedarone -pimozide -thioridazine -ziprasidone This medicine may also interact with the following medications: -carbamazepine -phenytoin -rifampicin -tramadol -other medicines that prolong the QT interval (cause an abnormal heart rhythm) What if I miss a dose? If you miss a dose, take it as soon as you can. If it is almost time for your next dose, take only that dose. Do not take double or extra doses. Where should I keep my medicine? Keep out of the reach of children. Store between 2 and 30 degrees C (36 and 86 degrees F). Throw away any unused medicine after the expiration date. What should I tell my health care provider before I take this medicine? They need to know if you have any of these conditions: heart disease history of irregular heartbeat liver disease low levels of magnesium or potassium in the blood an unusual or allergic reaction to ondansetron, granisetron, other medicines, foods, dyes, or preservatives or trying to get breast-feeding What should I watch for while using this medicine? Check with your doctor or health residential child care counselor as soon as you can if you have any sign of an allergic reaction. Sulfamethoxazole, Trimethoprim Oral tablet What is this medicine? SULFAMETHOXAZOLE; TRIMETHOPRIM or SMX-TMP (suhl fuh meth OK maldonado zohl; trye METH oh prim) is a combination of a sulfonamide antibiotic and a second antibiotic, trimethoprim. It is used to treat or prevent certain kinds of bacterial infections. It will not work for colds, flu, or other viral infections. How should I use this medicine? Take this medicine by mouth with a full glass of water. Follow the directions on the prescription label. Take your medicine at regular intervals. Do not take it more often than directed. Do not skip doses or stop your medicine early. Talk to your oncology transplant network manager regarding the use of this medicine in children. Special care may be needed. This medicine has been used in children as young as 2 months of age. What side effects may I notice from receiving this medicine? Side effects that you should report to your doctor or health residential child care counselor as soon as possible: allergic reactions like skin rash or hives, swelling of the face, lips, or tongue breathing problems fever or chills, sore throat irregular heartbeat, chest pain joint or muscle pain pain or difficulty passing urine red pinpoint spots on skin redness, blistering, peeling or loosening of the skin, including inside the mouth unusual bleeding or bruising unusually weak or tired yellowing of the eyes or skin Side effects that usually do not require medical attention (report to your doctor or health residential child care counselor if they continue or are bothersome): diarrhea dizziness headache loss of appetite nausea, vomiting nervousness What may interact with this medicine? Do not take this medicine with any of the following medications: aminobenzoate potassium dofetilide metronidazole This medicine may also interact with the following medications: KELLY inhibitors like benazepril, enalapril, lisinopril, and ramipril cyclosporine digoxin diuretics indomethacin medicines for diabetes methenamine methotrexate phenytoin potassium supplements pyrimethamine sulfinpyrazone tricyclic antidepressants warfarin What if I miss a dose? If you miss a dose, take it as soon as you can. If it is almost time for your next dose, take only that dose. Do not take double or extra doses. Where should I keep my medicine? Keep out of the reach of children. Store at room temperature between 20 to 25 degrees C (68 to 77 degrees F). Protect from light. Throw away any unused medicine after the expiration date. What should I tell my health care provider before I take this medicine? They need to know if you have any of these conditions: anemia asthma being treated with anticonvulsants if you frequently drink alcohol containing drinks kidney disease liver disease low level of folic acid or [id number] dehydrogenase poor nutrition or malabsorption porphyria severe allergies thyroid disorder an unusual or allergic reaction to sulfamethoxazole, trimethoprim, sulfa drugs, other medicines, foods, dyes, or preservatives or trying to get breast-feeding What should I watch for while using this medicine? Tell your doctor or health residential child care counselor if your symptoms do not improve. Drink several glasses of water a day to reduce the risk of kidney problems. Do not treat diarrhea with over the counter products. Contact your doctor if you have diarrhea that lasts more than 2 days or if it is severe and watery. This medicine can make you more sensitive to the sun. Keep out of the sun. If you cannot avoid being in the sun, wear protective clothing and use a sunscreen. Do not use sun lamps or tanning beds/booths. Oxycodone Hydrochloride, Acetaminophen Oral tablet What is this medicine? ACETAMINOPHEN; OXYCODONE (a set a ALISE kylie fen; ox i KOE done) is a pain reliever. It is used to treat mild to moderate pain. How should I use this medicine? Take this medicine by mouth with a full glass of water. Follow the directions on the prescription label. Take your medicine at regular intervals. Do not take your medicine more often than directed. Talk to your oncology transplant network manager regarding the use of this medicine in children. Special care may be needed. Patients over 65 years old may have a stronger reaction and need a smaller dose. What side effects may I notice from receiving this medicine? Side effects that you should report to your doctor or health residential child care counselor as soon as possible: allergic reactions like skin rash, itching or hives, swelling of the face, lips, or tongue breathing difficulties, wheezing confusion light headedness or fainting spells severe stomach pain yellowing of the skin or the whites of the eyes Side effects that usually do not require medical attention (report to your doctor or health residential child care counselor if they continue or are bothersome): dizziness drowsiness nausea vomiting What may interact with this medicine? alcohol antihistamines barbiturates like amobarbital, butalbital, butabarbital, methohexital, pentobarbital, phenobarbital, thiopental, and secobarbital benztropine drugs for bladder problems like solifenacin, trospium, oxybutynin, tolterodine, hyoscyamine, and methscopolamine drugs for breathing problems like ipratropium and tiotropium drugs for certain stomach or intestine problems like propantheline, homatropine methylbromide, glycopyrrolate, atropine, belladonna, and dicyclomine general anesthetics like etomidate, ketamine, nitrous oxide, propofol, desflurane, enflurane, halothane, isoflurane, and sevoflurane medicines for depression, anxiety, or psychotic disturbances medicines for sleep muscle relaxants naltrexone narcotic medicines (opiates) for pain phenothiazines like perphenazine, thioridazine, chlorpromazine, mesoridazine, fluphenazine, prochlorperazine, promazine, and trifluoperazine scopolamine tramadol trihexyphenidyl What if I miss a dose? If you miss a dose, take it as soon as you can. If it is almost time for your next dose, take only that dose. Do not take double or extra doses. Where should I keep my medicine? Keep out of the reach of children. This medicine can be abused. Keep your medicine in a safe place to protect it from theft. Do not share this medicine with anyone. Selling or giving away this medicine is dangerous and against the law. Store at room temperature between 20 and 25 degrees C (68 and 77 degrees F). Keep container tightly closed. Protect from light. This medicine may cause accidental overdose and if it is taken by other adults, children, or pets. Flush any unused medicine down the toilet to reduce the chance of harm. Do not use the medicine after the expiration date. What should I tell my health care provider before I take this medicine? They need to know if you have any of these conditions: brain tumor Crohn's disease, inflammatory bowel disease, or ulcerative colitis drink more than 3 alcohol containing drinks per day drug abuse or addiction head injury heart or circulation problems kidney disease or problems going to the bathroom liver disease lung disease, asthma, or breathing problems an unusual or allergic reaction to acetaminophen, oxycodone, other opioid analgesics, other medicines, foods, dyes, or preservatives or trying to get breast-feeding What should I watch for while using this medicine? Tell your doctor or health residential child care counselor if your pain does not go away, if it gets worse, or if you have new or a different type of pain. You may develop tolerance to the medicine. Tolerance means that you will need a higher dose of the medication for pain relief. Tolerance is normal and is expected if you take this medicine for a long time. Do not suddenly stop taking your medicine because you may develop a severe reaction. Your body becomes used to the medicine. This does NOT mean you are addicted. Addiction is a behavior related to getting and using a drug for a non-medical reason. If you have pain, you have a medical reason to take pain medicine. Your doctor will tell you how much medicine to take. If your doctor wants you to stop the medicine, the dose will be slowly lowered over time to avoid any side effects. You may get drowsy or dizzy. Do not drive, use machinery, or do anything that needs mental alertness until you know how this medicine affects you. Do not stand or sit up quickly, especially if you are an older patient. This reduces the risk of dizzy or fainting spells. Alcohol may interfere with the effect of this medicine. Avoid alcoholic drinks. There are different types of narcotic medicines (opiates) for pain. If you take more than one type at the same time, you may have more side effects. Give your health care provider a list of all medicines you use. Your doctor will tell you how much medicine to take. Do not take more medicine than directed. Call emergency for help if you have problems breathing. The medicine will cause constipation. Try to have a bowel movement at least every 2 to 3 days. If you do not have a bowel movement for 3 days, call your doctor or health residential child care counselor. Do not take Tylenol (acetaminophen) or medicines that have acetaminophen with this medicine. Too much acetaminophen can be very dangerous. Many nonprescription medicines contain acetaminophen. Always read the labels carefully to avoid taking more acetaminophen. You have been given the following additional information: Rectal Bleed, Stable Abdominal Pain, Unknown Cause, (Female) Bladder Infection, Female (Adult) Ondansetron Oral disintegrating tablet Sulfamethoxazole, Trimethoprim Oral tablet Oxycodone Hydrochloride, Acetaminophen Oral tablet Do not work for three days. (Electronically signed by Arnie Leon DO 02/22/2016 7:18)
--- NOTE | 2016-02-22 07:19 | ED MED RECONCILIATION SUMMARY ---
Patient: KENNEDY GILLETTE Medication Reconciliation Report [facility] VisitID: [id number] [address] [place] [address] 40y, F Registration Date/Time: 02/21/2016 Weight: 117.9 kg Height/Length: 67 in. BMI: 40.7 ALLERGIES: Morphine and Related The patient's Home Medications are listed below: THE FOLLOWING MEDICATIONS NEED TO BE RECONCILED: Gabapentin Oral 300 mg Glimepiride Oral (2 mg) Hydrocodone-Acetaminophen Oral Ibuprofen Oral 800 mg Lisinopril Oral 5 mg, daily Metformin HCl Oral 850 mg, 2x a day Niacin ER Oral (500 mg) Simvastatin Oral 20 mg, daily The source(s) of the original Home Medication information: patient The following Medications were given to the patient in the Emergency Department: IV NS IV Fluids bolus 0, then 1000 mL/hr, administered: 02/21/2016 10:40:00 PM Zofran [IVP] IVP 4 mg, administered: 02/21/2016 10:40:00 PM Fentanyl [IVP] IVP 100 mcg, administered: 02/21/2016 11:56:00 PM Bactrim DS [PO] PO 1 tab, administered: 02/22/2016 12:15:00 AM Zofran [IVP] IVP 4 mg, administered: 02/22/2016 12:31:00 AM The following Medications were prescribed to the patient: Zofran (orally disintegrating tablets) 4 mg: take 1-2 orally every 8 hours as needed for vomiting. Dispense ten (10). No refill. Substitution is permissible. -- Arnie Leon DO Trimethoprim-Sulfamethoxazole DS: take 1 tablet orally every 12 hours for 7 days. Dispense fourteen (14). No refills. -- Arnie Leon DO Percocet 5 mg/325 mg: take 1-2 tablets orally every 6 hours as needed for pain. Dispense ten (10). No refill. Substitution is permissible. -- Arnie Leon DO
--- NOTE | 2016-02-22 07:19 | ED MAR SUMMARY ---
..... Medication Administration Record [facility] [address] [place] [address] Patient: KENNEDY GILLETTE Visit ID: [id number] 40y, F Weight: 117.9 kg Height/Length: 67 in BMI: 40.7 ALLERGIES: Morphine and Related Start 22:40 02/21/2016 Kelli Ordoñez,, Stop 23:32 02/21/2016 Leela Ochoa R.N. Medication Administered: IV NS (SALINE), Dose: IV Fluids over 30 minute(s), Rate: 1000 mL/hr, Dispensed: 1000 mL bag, Site: #1 right AC. Medication Ordered: IV NS : initial bolus 500 mL (1000 mL/hr), then 250 mL/hr for X2 (NOW). Given 22:40 02/21/2016 Kelli Ordoñez, Medication Administered: ZOFRAN [IVP] (ONDANSETRON HCL), Dose: 4 mg IVP over 1 minute(s), Site: #1 right AC. Medication Ordered: Zofran IV 4 mg (NOW). Given 23:56 02/21/2016 Kelli Ordoñez, Medication Administered: FENTANYL [IVP], Dose: 100 mcg IVP over 2 minute(s), Site: #1 right AC. Medication Ordered: Fentanyl IV 100 mcg (HIGH ALERT MEDICATION, NOW). Given 00:15 02/22/2016 Kelli Ordoñez, Medication Administered: BACTRIM DS [PO] (SULFAMETHOXAZOLE-TMP DS), Dose: 1 tab Tablets PO. Medication Ordered: Bactrim DS PO (Tablet 800-160 mg) 1 tab (NOW). Given 00:31 02/22/2016 Kelli Ordoñez, Medication Administered: ZOFRAN [IVP] (ONDANSETRON HCL), Dose: 4 mg IVP over 2 minute(s), Site: #1 right AC. Medication Ordered: Zofran IV 4 mg (NOW).
--- NOTE | 2016-02-22 07:19 | ED MED RECONCILIATION SUMMARY ---
Patient: KENNEDY GILLETTE Medication Reconciliation Report [facility] VisitID: [id number] [address] [place] [address] 40y, F Registration Date/Time: 02/21/2016 Weight: 117.9 kg Height/Length: 67 in. BMI: 40.7 ALLERGIES: Morphine and Related The patient's Home Medications are listed below: THE FOLLOWING MEDICATIONS NEED TO BE RECONCILED: Gabapentin Oral 300 mg Glimepiride Oral (2 mg) Hydrocodone-Acetaminophen Oral Ibuprofen Oral 800 mg Lisinopril Oral 5 mg, daily Metformin HCl Oral 850 mg, 2x a day Niacin ER Oral (500 mg) Simvastatin Oral 20 mg, daily The source(s) of the original Home Medication information: patient The following Medications were given to the patient in the Emergency Department: IV NS IV Fluids bolus 0, then 1000 mL/hr, administered: 02/21/2016 10:40:00 PM Zofran [IVP] IVP 4 mg, administered: 02/21/2016 10:40:00 PM Fentanyl [IVP] IVP 100 mcg, administered: 02/21/2016 11:56:00 PM Bactrim DS [PO] PO 1 tab, administered: 02/22/2016 12:15:00 AM Zofran [IVP] IVP 4 mg, administered: 02/22/2016 12:31:00 AM The following Medications were prescribed to the patient: Zofran (orally disintegrating tablets) 4 mg: take 1-2 orally every 8 hours as needed for vomiting. Dispense ten (10). No refill. Substitution is permissible. -- Arnie Leon DO Trimethoprim-Sulfamethoxazole DS: take 1 tablet orally every 12 hours for 7 days. Dispense fourteen (14). No refills. -- Arnie Leon DO Percocet 5 mg/325 mg: take 1-2 tablets orally every 6 hours as needed for pain. Dispense ten (10). No refill. Substitution is permissible. -- Arnie Leon DO
--- NOTE | 2016-02-22 07:19 | ED MAR SUMMARY ---
..... Medication Administration Record [facility] [address] [place] [address] Patient: KENNEDY GILLETTE Visit ID: [id number] 40y, F Weight: 117.9 kg Height/Length: 67 in BMI: 40.7 ALLERGIES: Morphine and Related Start 22:40 02/21/2016 Kelli Ordoñez,, Stop 23:32 02/21/2016 Leela Ochoa R.N. Medication Administered: IV NS (SALINE), Dose: IV Fluids over 30 minute(s), Rate: 1000 mL/hr, Dispensed: 1000 mL bag, Site: #1 right AC. Medication Ordered: IV NS : initial bolus 500 mL (1000 mL/hr), then 250 mL/hr for X2 (NOW). Given 22:40 02/21/2016 Kelli Ordoñez, Medication Administered: ZOFRAN [IVP] (ONDANSETRON HCL), Dose: 4 mg IVP over 1 minute(s), Site: #1 right AC. Medication Ordered: Zofran IV 4 mg (NOW). Given 23:56 02/21/2016 Kelli Ordoñez, Medication Administered: FENTANYL [IVP], Dose: 100 mcg IVP over 2 minute(s), Site: #1 right AC. Medication Ordered: Fentanyl IV 100 mcg (HIGH ALERT MEDICATION, NOW). Given 00:15 02/22/2016 Kelli Ordoñez, Medication Administered: BACTRIM DS [PO] (SULFAMETHOXAZOLE-TMP DS), Dose: 1 tab Tablets PO. Medication Ordered: Bactrim DS PO (Tablet 800-160 mg) 1 tab (NOW). Given 00:31 02/22/2016 Kelli Ordoñez, Medication Administered: ZOFRAN [IVP] (ONDANSETRON HCL), Dose: 4 mg IVP over 2 minute(s), Site: #1 right AC. Medication Ordered: Zofran IV 4 mg (NOW).
== END 2016-02-22 01:35 | disposition home or self-care (01) ==
LOC: ED SRH 21:14
DX: K62.5 Hemorrhage of anus and rectum (principal); N30.00 Acute cystitis without hematuria; K52.9 Noninfective gastroenteritis and colitis, unspecified; R10.33 Periumbilical pain; R10.31 Right lower quadrant pain; R10.32 Left lower quadrant pain; I10 Essential (primary) hypertension; E11.9 Type 2 diabetes mellitus without complications; Z79.84 Long term (current) use of oral hypoglycemic drugs; Z79.899 Other long term (current) drug therapy
CPT/HCPCS: 90004; 90100; 90469; 90616; 92235; 92530; 92610; 92720; 94060; 95059